=== PATIENT | female | born 1995 | race American Indian/Alaskan Native ===

== ENCOUNTER 2016-07-09 19:01 | Emergency (ER) | payer SELFPAY ==
[2016-07-09 19:36] VITALS: BP 101/72
--- NOTE | 2016-07-09 19:37 | Emergency Department Report ---
Chief Complaint: Abdominal Pain Stated Complaint: ABD PAIN Time Seen by Provider: 07/09/16 19:34 - HPI History of Present Illness: pt c/o n/v and intermittent upper abd pain x 1 week - ROS Review of Systems: pt denies any menstrual abnormalities + n/v + decreased appetite - Exam Physical Exam: pt looks well, non toxic. pt is in no acute distress. pt's abd is soft and not tender at this time MSE screening note: Focused history and physical exam performed. Due to findings the following was ordered: labs ED Disposition for MSE Condition: Stable
[2016-07-09 21:08] LABS: Bilirubin,Urine NEG (Negative); Blood,Urine SM (Negative); Ketones,Urine NEG (Negative); Leukocyte Esterase,Urine NEG (Negative); Mucus,Urine 2+ /HPF; Nitrite,Urine NEG (Negative); Protein,Urine <15 mg/dL mg/dL (Negative); Urobilinogen,Urine < 2.0 mg/dL (<2.0); WBC,Urine < 1.0 /HPF (0.0-6.0)
[2016-07-09 21:13] LABS: Basophils % (Auto) 0.8 % (0.0-1.8); Hematocrit 38.6 % (30.3-42.9); Hemoglobin 12.5 gm/dl (10.1-14.3); Mean Corpuscular HGB Conc 32 % (30-34); Mean Corpuscular Hemoglobin 26 pg (28-32); Mean Corpuscular Volume 81 fl (79-97); Platelet Count 250 K/mm3 (140-440); Red Blood Count 4.75 M/mm3 (3.65-5.03); Red Cell Distribution Width 14.4 % (13.2-15.2); White Blood Count 8.5 K/mm3 (4.5-11.0)
[2016-07-09 21:17] LABS: Alanine Aminotransferase 25 units/L (7-56); Albumin 3.9 g/dL (3.9-5); Alkaline Phosphatase 91 units/L (35-129); Anion Gap 17 mmol/L; BUN/Creatinine Ratio 17.14; Bilirubin,Total 0.2 mg/dL (0.1-1.2); Blood Urea Nitrogen 12 mg/dL (7-17); Calcium 9.5 mg/dL (8.4-10.2); Carbon Dioxide 28 mmol/L (22-30); Chloride 99.9 mmol/L (98-107); Glucose 84 mg/dL (65-100); Lipase 30 units/L (13-60); Potassium 4.3 mmol/L (3.6-5.0); Sodium 141 mmol/L (137-145); Total Protein 7.8 g/dL (6.3-8.2)
--- NOTE | 2016-07-10 15:17 | ED Elopement Review ---
ED Pt Elopement review - Results review Lab results: Laboratory Tests 07/09/16 07/09/16 07/09/16 20:15 20:47 20:47 WBC 8.5 RBC 4.75 Hgb 12.5 Hct 38.6 MCV 81 MCH 26 L MCHC 32 RDW 14.4 Plt Count 250 Lymph % (Auto) 19.8 [place] % (Auto) 7.8 H Eos % (Auto) 1.0 Baso % (Auto) 0.8 Lymph # 1.7 [place] # 0.7 Eos # 0.1 Baso # 0.1 Seg Neutrophils % 70.6 H Seg Neutrophils # 6.0 Sodium 141 Potassium 4.3 Chloride 99.9 Carbon Dioxide 28 Anion Gap 17 BUN 12 Creatinine 0.7 Estimated GFR > 60 BUN/Creatinine Ratio 17.14 Glucose 84 Calcium 9.5 Total Bilirubin 0.2 AST 22 ALT 25 Alkaline Phosphatase 91 Total Protein 7.8 Albumin 3.9 Albumin/Globulin Ratio 1.0 Lipase 30 Urine Color Yellow Urine Turbidity Clear Urine pH 7.0 Ur Specific [place] 1.018 Urine Protein <15 mg/dl Urine Glucose (UA) Neg Urine Ketones Neg Urine Blood Sm Urine Nitrite Neg Urine Bilirubin Neg Urine Urobilinogen < 2.0 Ur Leukocyte Esterase Neg Urine WBC (Auto) < 1.0 Urine RBC (Auto) 2.0 U Epithel Cells (Auto) 2.0 Urine Mucus 2+ Urine HCG, Qual Negative - Call Back decision Pt Call Back Decision: No action required
== END 2016-07-10 03:10 | disposition left against medical advice (07) ==
LOC: ED 19:01
DX: R11.2 Nausea with vomiting, unspecified (principal); R10.9 Unspecified abdominal pain; Z53.21 Procedure and treatment not carried out due to patient leaving prior to being seen by health care provider
CPT/HCPCS: 36415; 80053; 81001; 81025; 83690; 85025